=== PATIENT | male | born 1950 ===

== ENCOUNTER 2019-08-06 14:02 | Outpatient (CLI) | payer MEDICARE ==
[2019-08-06] MEDS ORDERED: Magnevist 469MG/ML 20 ML VIAL ONE (14:31)
--- NOTE | 2019-08-06 15:39 | MRI ---
MRI OF THE ABDOMEN WITHOUT AND WITH CONTRAST: 08/06/19 COMPARISON: None. HISTORY: Hepatitis C. TECHNIQUE: Multiplanar and multisequence MR images were obtained in the abdomen without and with IV contrast. FINDINGS: The liver has a smooth contour without evidence of cirrhosis. No focal liver lesions are seen. No int rahepatic biliary dilatation is seen. There is a nonenhancing 1.5 cm cyst in the right kidney. The gallbladder, left kidney, adrenal glands , spleen, and pancreas are unremarkable. No enlargement of the common bile duct is seen. No abdominal adenopathy is seen. No marrow signal abnormality is present. Degenerative changes are se en in the spine. IMPRESSION: 1. No significant hepatic abnormality. 2. Right renal cyst. POS: [facility]
== END 2019-08-06 14:03 | disposition home or self-care (01) ==
LOC: BICMRI 14:02
DX: C22.0 Liver cell carcinoma (principal); M79.89 Other specified soft tissue disorders; N28.1 Cyst of kidney, acquired; Z86.19 Personal history of other infectious and parasitic diseases
CPT/HCPCS: 74183; 82565; A9579